=== PATIENT | female | born 1970 | race Caucasian/White ===

== ENCOUNTER 2021-10-13 18:37 | Inpatient (IN) | payer MEDICARE, OTHER ==
[~2021-10-13] VITALS: Ht 162.6 cm; Wt 90.4 kg
[~2021-10-13 18:37] MED LIST: ASPIRIN EC81 MG PO; GLUCOPHAGE500 MG PO; KEFLEX500 MG PO; LOPRESSOR 25 MG25 MG PO; NEURONTIN300 MG PO
[2021-10-13 19:40] LABS: RED BLOOD COUNT 5.25 M/UL (4.00-5.10); WHITE BLOOD COUNT 22.6 K/UL (4.5-11.0)
[2021-10-14] MEDS ORDERED: LOPRESSOR 25 MG25 MG PO (09:28)
[2021-10-14 16:04] LABS: RED BLOOD COUNT 4.92 M/UL (4.00-5.10)
--- NOTE | 2021-10-14 16:35 | NUR ---
PT TO BE TRANSFERRED TO PCU FOR POSSIBLE COMPARTMENT SYNDROME. CONSULT TO CARDIOLOGY CALLED PER W/C TO GAIL TAVAREZ NP. HE STATES THAT THE CORK PAINTER AND GRADER GERMAN PROFESSOR DOES NOT DO ANY VASCULAR INTERVENTIONS AND DR CAMPOS THAT IS NOT GERMAN PROFESSOR IS THE ONLY ONE THAT MAY DO VASCULAR. DR CANTU MADE AWARE AND STATES HE WILL DISCUSS IT WITH . [id number] CALLED TO DR NEGRETE FOR POSSIBLE COMPARTMENT SYNDROME. HE STATES HE NEEDS TO BE CALLED BY DR CANTU FOR THIS CONSULT. DR CANTU MADE AWARE AND STATES HE WILL CONTACT DR NEGRETE TO DISCUSS CASE/ EXPLAINED TO PT THAT SHE WILL BE TRANSFERRED TO PCU FOR CLOSER OBSERVATION. VERBALIZED UNDERSTANDING.
[2021-10-15 04:32] LABS: HEMOGLOBIN 12.7 gm/dl (12.3-15.3); RED BLOOD COUNT 4.81 M/UL (4.00-5.10); WHITE BLOOD COUNT 17.1 K/UL (4.5-11.0)
[2021-10-15 05:26] LABS: BUN/CREATININE RATIO 26 (0-10)
[2021-10-16 03:40] LABS: HEMOGLOBIN 13.9 gm/dl (12.3-15.3); RED BLOOD COUNT 5.25 M/UL (4.00-5.10); WHITE BLOOD COUNT 19.9 K/UL (4.5-11.0)
[2021-10-16 04:08] LABS: BUN/CREATININE RATIO 24 (0-10)
[2021-10-16 08:14] LABS: HIV AB/P24 AG SCREEN Non Reactive (Non Reactive); RPR Non Reactive (Non Reactive)
[2021-10-16 09:14] LABS: HBSAG SCREEN Negative (Negative); HEP B CORE AB, TOT Positive (Negative); HEP C VIRUS AB 0.1 (0.0-0.9)
[2021-10-17 04:59] LABS: HEMOGLOBIN 13.6 gm/dl (12.3-15.3); RED BLOOD COUNT 5.13 M/UL (4.00-5.10); WHITE BLOOD COUNT 21.3 K/UL (4.5-11.0)
[2021-10-18 02:43] LABS: HEMOGLOBIN 13.7 gm/dl (12.3-15.3); RED BLOOD COUNT 5.14 M/UL (4.00-5.10)
[2021-10-19 02:38] LABS: RED BLOOD COUNT 4.35 M/UL (4.00-5.10); WHITE BLOOD COUNT 9.6 K/UL (4.5-11.0)
[2021-10-20 07:50] LABS: HEMOGLOBIN 12.4 gm/dl (12.3-15.3); RED BLOOD COUNT 4.56 M/UL (4.00-5.10)
[2021-10-20 11:17] LABS: CREATININE, URINE 47.7 mg/dL (Not Estab.)
[2021-10-21 04:18] LABS: HEMOGLOBIN 11.1 gm/dl (12.3-15.3); RED BLOOD COUNT 4.2 M/UL (4.00-5.10); WHITE BLOOD COUNT 7.7 K/UL (4.5-11.0)
--- NOTE | 2021-10-21 20:13 | NUR ---
[facility] ARRIVED TO TRANSPORT PT TO [facility], PT IN GOOD SPIRITS. NO COMPLAINTS OF PAIN, VITALS STABLE TO PT'S NORMAL. EASY TRANSFER, PT MOVED TO STRETCHER WITH NO PROBLEMS. HEPARIN DRIP CONTINOUS THROUGH RIGHT FOREARM IV, 13ML/HR, IV HAD GOOD BLOOD RETURN. PT WENT WITH ALL BELONGINGS INCLUDING THE LIFE VEST AND ALL ACCESSORIES.
== END 2021-10-21 20:00 | disposition short-term general hospital (02) | DRG 871 ==
LOC: ER1 18:37 → CDU 22:24 → M/S 22:24 → PROG CARE 22:24 → M/S 10-14 08:17 → PROG CARE 10-14 17:53
PROVIDERS: Emergency Medicine; Internal Medicine; Internal Medicine Infectious Disease; Student in an Organized Health Care Education/Training Program; ADMIT Internal Medicine
DX: A41.9 Sepsis, unspecified organism (principal); K72.00 Acute and subacute hepatic failure without coma; J69.0 Pneumonitis due to inhalation of food and vomit; N17.0 Acute kidney failure with tubular necrosis; L03.115 Cellulitis of right lower limb; D68.9 Coagulation defect, unspecified; E87.1 Hypo-osmolality and hyponatremia; I42.9 Cardiomyopathy, unspecified; J98.11 Atelectasis; B17.9 Acute viral hepatitis, unspecified; I50.42 Chronic combined systolic (congestive) and diastolic (congestive) heart failure; E87.5 Hyperkalemia; I70.222 Atherosclerosis of native arteries of extremities with rest pain, left leg; D69.6 Thrombocytopenia, unspecified; F15.10 Other stimulant abuse, uncomplicated; E11.9 Type 2 diabetes mellitus without complications; G47.33 Obstructive sleep apnea (adult) (pediatric); I27.20 Pulmonary hypertension, unspecified; I11.0 Hypertensive heart disease with heart failure; E55.9 Vitamin D deficiency, unspecified; T36.8X5A Adverse effect of other systemic antibiotics, initial encounter; E87.6 Hypokalemia; R79.89 Other specified abnormal findings of blood chemistry; F17.210 Nicotine dependence, cigarettes, uncomplicated; J44.9 Chronic obstructive pulmonary disease, unspecified; E78.5 Hyperlipidemia, unspecified; Z91.14 Patient's other noncompliance with medication regimen; Z83.3 Family history of diabetes mellitus; Z90.710 Acquired absence of both cervix and uterus; Z80.0 Family history of malignant neoplasm of digestive organs; Z84.89 Family history of other specified conditions
CPT/HCPCS: ECHO; 36415; 36600; 71045; 75635; 80048; 80053; 80061; 80202; 80307; 81001; 82043; 82436; 82550; 82553; 82570; 82607; 82728; 82746; 82803; 82962; 83036; 83605; 83735; 83880; 83930; 83935; 84100; 84133; 84156; 84300; 84439; 84443; 84484; 84550; 85025; 85027; 85384; 85610; 85652; 85730; 86140; 86592; 86704; 86706; 86708; 86803; 87040; 87081; 87340; 87389; 93005; 93306; 94760; 96374; 96375; 96376; 99285; G0378; G0480; J1644; J1650; J1940; J2185; J2270; J2405; J2543; J3370; J7030; J7050; J7070; P9047; Q9967; U0002

== ENCOUNTER 2022-03-10 14:42 | Emergency (ER) | payer MEDICARE, OTHER ==
[2022-03-10 15:58] LABS: HEMOGLOBIN 12.8 gm/dl (12.3-15.3); RED BLOOD COUNT 4.74 M/UL (4.00-5.10); WHITE BLOOD COUNT 10.8 K/UL (4.5-11.0)
== END 2022-03-10 17:50 | disposition left against medical advice (07) ==
LOC: ER1 14:42
PROVIDERS: Family Medicine
DX: E11.51 Type 2 diabetes mellitus with diabetic peripheral angiopathy without gangrene (principal); E11.65 Type 2 diabetes mellitus with hyperglycemia; E87.6 Hypokalemia; I96 Gangrene, not elsewhere classified; I42.9 Cardiomyopathy, unspecified; I50.9 Heart failure, unspecified; F17.200 Nicotine dependence, unspecified, uncomplicated; Z99.81 Dependence on supplemental oxygen; Z91.14 Patient's other noncompliance with medication regimen; Z20.822 Contact with and (suspected) exposure to COVID-19
CPT/HCPCS: 36600; 71045; 80053; 82550; 82553; 82803; 83605; 83735; 83880; 84484; 85025; 85610; 86140; 93005; 99283; U0002